=== PATIENT | female | born 1975 | race Caucasian/White ===

== ENCOUNTER 2018-12-28 23:05 | Emergency (ER) | payer OTHER ==
[2018-12-29 02:19] LABS: URINE BLOOD (Dip) POC Negative (NEGATIVE); URINE GLUCOSE (Dip) POC Negative (NEGATIVE); URINE KETONES (Dip) POC Negative (NEGATIVE); URINE LEUKOCYTE EST (Dip) POC 1+ (NEGATIVE); URINE NITRITE (Dip) POC Negative (NEGATIVE); URINE TOTAL PROTEIN POC Negative (NEGATIVE)
[2018-12-29 02:48] LABS: ADD MAN DIFF? NO
[2018-12-29 02:51] LABS: WHITE BLOOD COUNT 10.2 10^3/ul (4.8-10.8)
[2018-12-29 02:52] LABS: BASOPHILS % 0.4 % (0.0-2.0); EOSINOPHILS # 0.3 10^3/ul (0.0-0.5); EOSINOPHILS % 3.3 % (0.0-7.0); HEMATOCRIT 42.1 % (37.0-47.0); HEMOGLOBIN 14.1 g/dl (12.0-16.0); LYMPHOCYTES # 2.9 10^3/ul (0.8-2.9); MEAN CORPUSCULAR HGB CONC 33.5 g/dl (32.0-37.0); MEAN CORPUSCULAR VOLUME 86.4 fl (82.0-101.0); MEAN PLATELET VOLUME 9.8 fl (7.4-10.4); MONOCYTE # 0.9 10^3/ul (0.3-0.9); MONOCYTES % 8.5 % (0.0-11.0); NEUTROPHIL # 6.1 10^3/ul (1.6-7.5); NEUTROPHILS % 59.3 % (39.0-77.0); PLATELET COUNT 313 10^3/UL (140-415); RED BLOOD COUNT 4.87 10^6/ul (4.20-5.40); RED CELL DISTRIBUTION WIDTH 12.6 % (11.5-14.5)
[2018-12-29 03:13] LABS: ANION GAP 7 (5-13); BLOOD UREA NITROGEN 16 mg/dl (7-20); CALCIUM 9.4 mg/dl (8.4-10.2); CARBON DIOXIDE 27 mmol/L (21-31); CHLORIDE 105 mmol/L (97-110); CREATININE 0.62 mg/dl (0.44-1.00); Estimated GFR > 60 mL/min (>60); GLUCOSE 107 mg/dl (70-220); POTASSIUM 3.6 mmol/L (3.5-5.1); SODIUM 139 mmol/L (135-144)
[2018-12-29] MEDS: TRIMETHOPRIM/SULFAMETHOX (DS) TAB PO (04:02)
== END 2018-12-29 04:11 | disposition home or self-care (01) ==
LOC: E/R 23:05
DX: N39.0 Urinary tract infection, site not specified (principal); J45.909 Unspecified asthma, uncomplicated; E03.9 Hypothyroidism, unspecified
CPT/HCPCS: 36415; 71045; 80048; 81003; 81025; 85025; 99284-25